=== PATIENT | male | born 1950 | race Caucasian/White ===

== ENCOUNTER 2017-05-13 09:32 | Emergency (ER) | payer BC, OTHER ==
[2017-05-13] MEDS ORDERED: Tenecteplase 50 MG Kit ONE (09:47)
[2017-05-13] MEDS ORDERED: Heparin Sodium 5,000 Units/ML Vial IVPUSH ONE (09:52)
[2017-05-13] MEDS ORDERED: Clopidogrel 75 MG Tab ONE (09:53)
[2017-05-13] MEDS ORDERED: Aspirin 81 MG Tab.Chew ONE (09:53)
[2017-05-13] MEDS ORDERED: Metoclopramide 10 MG/2 ML SDV IVPUSH ONE (09:57)
[2017-05-13] MEDS ORDERED: Heparin Sodium 5,000 Units/ML Vial ONE (09:57)
[2017-05-13] MEDS ORDERED: fentaNYL 100 MCG/2 ML SDV IVPUSH ONE (09:57)
[2017-05-13] MEDS ORDERED: Heparin Sodium/D5W 500 ML ONE (09:58)
--- NOTE | 2017-05-13 09:58 | EDM.PDOC ---
ED HPI GENERAL MEDICAL PROBLEM - General Chief Complaint: Chest Pain Stated Complaint: CHEST PAIN Time Seen by Provider: 05/13/17 09:50 Source of Information: Reports: Patient History Limitations: Reports: No Limitations - History of Present Illness INITIAL COMMENTS - FREE TEXT/NARRATIVE: 66-year-old male presents to the ED after wakening from sleep somewhere between 6 and 6:30 this morning with severe central chest pain. Destroys describes the pain as a heavy this or not in the central aspect of his chest. He states there is no radiation of the pain to his arms neck are back. Associated diaphoresis mild nausea. Patient smokes cigars daily for the last 15 years. He used to smoke cigarettes many years ago. Has a history of atherosclerosis having had stents placed in both femoral arteries for peripheral vascular disease. He has no history of coronary artery disease or infarct. Onset: Today Onset Date: 05/13/17 Onset Time: 06:15 Duration: Hour(s): Location: Reports: Chest (Central chest heaviness described as a knot in his mid chest.) Quality: Reports: Pressure Severity: Moderate Improves with: Reports: None (8 out of 10.) Worsens with: Reports: None Context: Denies: Activity, Exercise, Lifting, Sick Contact, Trauma, Other Associated Symptoms: Reports: Chest Pain, Cough, Diaphoresis, Malaise, Nausea/ Vomiting, Shortness of Breath. 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 He states it did not really help his claudication. ) Respiratory History: Reports: COPD (COPD by history of chronic cigarette and cigar use.) Musculoskeletal History: Reports: Back Pain, Chronic (Chronic severe low back pain due to degenerative disc disease with recurrent pain into but talks and posterior thighs bilaterally.) Social & Family History - Tobacco Use Smoking Status *Q: Former Smoker Tobacco Use Within Last Twelve Months: Cigars (Quit smoking cigarettes greater than 15 years ago. Currently smoking cigars 5-7 per day.) - Alcohol Use Alcohol Use History: Yes Days Per Week of Alcohol Use: 2 ED ROS GENERAL - Review of Systems Review Of Systems: See Below Constitutional: Reports: No Symptoms HEENT: Reports: No Symptoms Respiratory: Reports: Shortness of Breath (See history of present illness), Cough, Sputum (Occasional sputum production.) Cardiovascular: Reports: Chest Pain Endocrine: Reports: No Symptoms GI/Abdominal: Reports: No Symptoms : Reports: Frequency, Other (BPH.) Musculoskeletal: Reports: Back Pain (Chronic severe back pain with degenerative disc disease and sciatica in both lower extremities.) Skin: Reports: No Symptoms Neurological: Reports: Numbness (Both posterior lower extremities.), Tingling, Difficulty Walking (States he can walk about 25 yards before he has to stop due to pain. Question whether this is claudication or due to neurogenic pain) Psychiatric: Reports: No Symptoms Hematologic/Lymphatic: Reports: No Symptoms Immunologic: Reports: No Symptoms ED EXAM, GENERAL - Physical Exam Exam: See Below Exam Limited By: No Limitations General Appearance: Alert, WD/WN, Mild Distress, Other (Very stoic fellow.) Eye Exam: Bilateral Eye: Normal Inspection Neck: No: Carotid Bruit, Lymphadenopathy (L), Lymphadenopathy (R) Respiratory/Chest: No Respiratory Distress, Lungs Clear, Normal Breath Sounds, Decreased Breath Sounds, Wheezing Cardiovascular: Regular Rate, Rhythm, No Edema, No Gallop, No Murmur, Other ( Patient has very weak pulses to his feet.). No: Normal Peripheral Pulses Peripheral Pulses: 1+: Posterior Tibial (L), Posterior Tibial (R), Dorsalis Pedis (L), Dorsalis Pedis (R) GI/Abdominal: Normal Bowel Sounds, Soft, Non-Tender, No Organomegaly, No Mass (Male) Exam: No Hernia Back Exam: Decreased Range of Motion Extremities: Non-Tender, No Pedal Edema. No: Pedal Edema Neurological: Alert, Oriented, CN II-XII Intact, Normal Cognition Psychiatric: Normal Affect, Normal Mood Skin Exam: Warm, Dry, Intact, Normal Color, No Rash EKG INTERPRETATION EKG Date: 05/13/17 Time: 09:45 Rhythm: NSR Rate (Beats/Min): 93 [place]: Normal P-Wave: Present QRS: RBBB ST-T: Elevated (ST segment is markedly elevated greater than 2.5 mm in leads II , III, and F aVF compatible with an acute inferior wall myocardial infarction or STEMI. There is also associated ST segment depression in V1 and V2 worrisome for posterior wall involvement. There is ST segment elevation also in leads V5 and V6 worrisome for inferior apical ischemia.) QT: Normal EKG Interpretation Comments: Acute inferior wall myocardial infarction-STEMI. Course - Vital Signs Last Recorded V/S: Last Vital Signs Temp 36.3 C 05/13/17 09:39 Pulse 82 05/13/17 09:39 Resp 16 05/13/17 09:39 BP 155/88 H 05/13/17 09:39 Pulse Ox 96 05/13/17 09:39 - Orders/Labs/Meds Meds: Medications Discontinued Medications Generic Name Dose Route Start Last Admin Trade Name Nikole PRN Reason Stop Dose Admin Tenecteplase Confirm 05/13/17 09:47 Tnkase Administered 05/13/17 09:48 Dose 50 mg .ROUTE .STBooodl-MED ONE - Radiology Interpretation Free Text/Narrative:: 66-year-old male presents to the ED with complaints of central chest heaviness which he describes as a knot in his central chest. No radiation of pain to neck or arms or back. Mild associated shortness of breath and diaphoresis and minimal nausea. Patient has no known history of coronary disease although he has a history of atherosclerosis having had peripheral vascular disease repair by stenting his femoral arteries bilaterally. Still smokes cigars used to smoke cigarettes greater than 15 years ago. He knows that he has elevated cholesterol as well. Has mild associated cough. More of a smoker's cough. ECG reveals an acute inferior wall myocardial infarction with ST segment elevation in leads II , III, and F aVF of greater than 2.5 mm. There are also changes in V1 and V2 suggestive of possible posterior wall involvement. There is also mild ST segment elevation in V5 and V6 suggesting possible inferior apical involvement. Plan : Patient has no contraindications to thrombolytics. This was discussed with him with possibility of bleeding elsewhere if he receives medication he opted for thrombolytics. He was therefore given tenecteplase at full dose based on his weight which is 91 kg. He therefore received 50 mg of TNKase. He did receive aspirin 324 mg chewed. He will be heparinized with a 4000 unit bolus and then 1000 units per hour. He will also receive Plavix 600 mg orally. One view chest x-ray to be done with routine labs including cardiac markers and BNP. The ECG will be done with right ventricular leads as well. - Re-Assessments/Exams Free Text/Narrative Re-Assessment/Exam: 05/13/17 10:10: Arrangements have been made to send the patient to [facility] in [facility] per helicopter. 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 Patient reports that his pain was about half of what it was when he came into the ED at the time of discharge. I.e. 4 out of 10. He has received fentanyl 50 g IV as well as Reglan 7.5 mg IV. Blood pressure remains stable at 159/84. Retrograde is 93 and regular. Right ventricular lead ECG suggests right ventricular infarct. 05/13/17 10:58 Labs reveal a elevated white count at 13.82 with a left shift of 77% neutrophils no bands reported. Hemoglobin is 16.7 with hematocrit of 49.9. This suggest mild hemoconcentration. MCV is minimally elevated at 95.2. PT is 10.6 with an INR of 0.99. PTT is 33. Sodium is 136 with a potassium of 3.8. Chloride is 99 with a bicarbonate of 24. And a gap is 16.8. BUN is 12.. Glucose is 179. Calcium is 9.7 magnesium is 2.1. Bilirubin is 0.2. AST is 20 ALT is 27. Alkaline phosphatase is 101. CK-MB fraction is 1.8 troponin I remains low at 0.060. Normal on our labs up to 0.059.. C-reactive protein is mildly elevated at 2.9. BNP is 147. Chest x-ray suggested suggests cardiac silhouette to be normal. There is evidence of diffuse vascular congestion to the upper lobes. 05/13/17 11:03 we finally got a note from the pharmacy about his current medications which is Viagra. We didn't have a chance therefore asked when he used this medication last. However he did not have any sudden drop in his blood pressure with the addition of nitroglycerin to his treatment plan. Departure - Departure Time of Disposition: 10:45 Disposition: DC/Tfer to Acute Hospital 02 Reason for Transfer *Q: Primary PCI Indicated Condition: Serious Clinical Impression: Acute myocardial infarction Qualifiers: Myocardial infarction type: ST elevation myocardial infarction Involved coronary artery: right coronary artery Qualified Code(s): I21.11 - ST elevation (STEMI) myocardial infarction involving right coronary artery Referrals: Landon Ware Jr, MD [Primary Care Provider] - Additional Instructions: Patient transferred to [facility] at his request in [place]. He will be transferred reported there by helicopter service due to the acute cardiac infarction. He may benefit from PCI. Critical Care Note - Critical Care Note Total Time (mins): 45
[2017-05-13] MEDS ORDERED: Sodium Chloride 0.9% 1,000 ML IV SCH (10:00)
[2017-05-13] MEDS ORDERED: Nitroglycerin/D5W 25 MG/250 ML BOTTLE IV SCH (10:00)
[2017-05-13] MEDS ORDERED: Heparin Sodium/D5W 25,000 UNITS/500 ML BAG IV SCH (10:00)
[2017-05-13] MEDS ORDERED: Aspirin 81 MG Tab.Chew PO ONE (10:09)
[2017-05-13] MEDS ORDERED: Clopidogrel 75 MG Tab PO ONE (10:09)
[2017-05-13] MEDS ORDERED: Tenecteplase 50 MG Kit IV SCH (10:30)
--- NOTE | 2017-05-13 10:41 | CR ---
Chest: Frontal view of the chest was obtained. Comparison: No prior chest x-ray. Heart size and mediastinum are normal. Lungs are clear. Bony structures are grossly intact. Impression: 1. Nothing acute is identified on frontal chest x-ray. Diagnostic code #1
== END 2017-05-13 10:23 ==
LOC: JD.ED 09:32
DX: I21.11 ST elevation (STEMI) myocardial infarction involving right coronary artery (principal); E78.00 Pure hypercholesterolemia, unspecified; I10 Essential (primary) hypertension; Z87.891 Personal history of nicotine dependence
CPT/HCPCS: 36415; 71045; 80053; 82553; 83735; 83880; 84484; 85025; 85610; 85730; 86140; 93005; 96365; 96368; 96374; 96375; 99285; A9270; J1644; J2765; J3010; J3101; 93010; 99291